=== PATIENT | female | born 1950 ===

== ENCOUNTER 2017-10-03 11:27 | Emergency (ER) | payer MEDICARE ==
[2017-10-03] MEDS ORDERED: NS(*) 0.9% 1000 ML BAG 1,000 ML IV ONE (11:31)
--- NOTE | 2017-10-03 11:33 | EKG ---
FACILITY: [facility] PATIENT NAME: GISELL SHEEHAN : [id number] MR: [id number] V: [id number] EXAM DATE: ORDERING PHYSICIAN: BRITTANIE BALLESTEROS TECHNOLOGIST: SILVANO Parikh Reason : Blood Pressure : / mmHG Vent. Rate : 145 BPM Atrial Rate : 051 BPM P-R Int : 000 ms QRS Dur : 140 ms QT Int : 352 ms P-R-T Axes : 000 046 -80 degrees QTc Int : 546 ms Sinus tachycardia with premature ventricular or aberrantly conducted complexes Left bundle branch block Abnormal ECG No previous ECGs available Confirmed by TANVIR PATEL ([id number]) on 10/03/2017 5:44:15 PM Referred By: Confirmed By:TANVIR PATEL
[2017-10-03] MEDS ORDERED: ASPIRIN 81 MG CHEW PO ONE (11:35)
--- NOTE | 2017-10-03 11:35 | ER Report ---
History and Physical Time Seen By MD: 11:23 HPI/ROS CHIEF COMPLAINT: Tachycardia HISTORY OF PRESENT ILLNESS: 67-year-old female patient presents to emergency room with complaint of tachycardia. Patient states that this is been going on for the past 3-1/2 hours. She states she's had a history of SVT in the past. She believes that's what's going on. She denies having any nausea, vomiting or diarrhea. Patient states that she has a carrot grader inspector that she sees down in [place], Dr. Garrido. However she states that she did not feel she is able to drive down there today. She denies having any chest pain. She states that this has happened in the past and typically they recommend that she wait until he clears. She states that she is feeling so unsteady that she was becoming reevaluated now. Patient states she is having some dizziness, hard time seeing. Patient has a history of a four-vessel CABG. REVIEW OF SYSTEMS: Respiratory: No cough, no dyspnea. Cardiovascular: As noted above Gastrointestinal: No vomiting, no abdominal pain. Musculoskeletal: No back pain. Allergies: Coded Allergies: amiodarone (Verified Allergy, Intermediate, 10/03/17) atorvastatin (Verified Allergy, Intermediate, 10/03/17) fluoxetine (Verified Allergy, Intermediate, 10/03/17) nitrofurantoin (Verified Allergy, Intermediate, 10/03/17) sertraline (Verified Allergy, Intermediate, 10/03/17) simvastatin (Verified Allergy, Intermediate, 10/03/17) tramadol (Verified Allergy, Intermediate, 10/03/17) Home Meds Reported Medications Ranitidine Hcl (ZANTAC) 150 Mg Tablet, 300 MG PO BID, TAB 10/03/17 Atenolol (ATENOLOL) 50 Mg Tablet, 100 TAB PO QDAY, TAB 10/03/17 Pravastatin Sodium (PRAVASTATIN SODIUM) 80 Mg Tablet, 80 MG PO QDAY 10/03/17 Buspirone Hcl (BUSPIRONE HCL) 15 Mg Tablet, 15 MG PO BID, #10 TAB 10/03/17 Amitriptyline Hcl (AMITRIPTYLINE HCL) 25 Mg Tablet, 25 MG PO QHS, #5 TAB 10/03/17 Citalopram Hydrobromide (CITALOPRAM HBR) 20 Mg Tablet, 20 MG PO QDAY, #5 TAB 10/03/17 Ondansetron Hcl (ZOFRAN) 4 Mg Tablet, 8 MG PO Q12H, TAB 10/03/17 Past Medical/Surgical History Patient has a past medical history of shoulder fracture, [place]. Patient has surgical history of four-vessel CABG. Reviewed Nurses Notes: Yes Constitutional Vital Sign - Last 24 Hours 10/03/17 10/03/17 10/03/17 10/03/17 11:27 11:27 11:30 11:38 Temp 98.0 Pulse 145 146 Resp 17 B/P (MAP) 88/55 (66) 118/94 Pulse Ox 91 90 O2 Delivery Room Air O2 Flow Rate 1.0 10/03/17 10/03/17 10/03/17 10/03/17 11:42 11:45 11:57 12:00 Pulse 152 70 B/P (MAP) 113/71 (85) 100/69 (79) Pulse Ox 90 91 10/03/17 10/03/17 10/03/17 10/03/17 12:12 12:15 12:27 12:32 Pulse 64 65 ??? B/P (MAP) 109/74 (86) Pulse Ox 93 10/03/17 10/03/17 10/03/17 10/03/17 12:45 13:00 13:02 13:15 Pulse 64 Resp 18 B/P (MAP) 112/78 (89) 92/75 (81) 111/74 (86) 10/03/17 10/03/17 10/03/17 10/03/17 13:30 13:32 13:45 14:00 Pulse ??? Resp 57 B/P (MAP) 108/60 (76) 120/73 (89) 102/67 (79) Pulse Ox 91 10/03/17 10/03/17 10/03/17 14:02 14:15 14:27 Pulse 54 Resp 30 B/P (MAP) 128/125 (126) 114/68 (83) Pulse Ox 91 Intake and Output 10/03/17 10/03/17 10/04/17 15:00 23:00 07:00 Intake Total 1000 ml Balance 1000 ml Physical Exam General Appearance: The patient is alert, has no immediate need for airway protection and no current signs of toxicity. Respiratory: Chest is non tender, lungs are clear to auscultation. Cardiac: regular rhythm, patient is tachycardic. Gastrointestinal: Abdomen is soft and non tender, no masses, bowel sounds normal. Musculoskeletal: Neck: Neck is supple and non tender. Extremities have full range of motion and are non tender. Skin: No rashes or lesions. DIFFERENTIAL DIAGNOSIS: After history and physical exam differential diagnosis was considered for chest pain including but not limited to myocardial ischemia, pericarditis pulmonary embolus, chest wall pain, pleural inflammation and pulmonary infectious causes. Medical Decision Making Data Points Result Diagram: 10/03/17 1120 10/03/17 1120 Laboratory Hematology Test 10/03/17 11:20 10/03/17 13:41 Red Blood Count 5.50 M/uL (4.17-5.56) Mean Corpuscular Volume 82.9 fL (80.0-96.0) Mean Corpuscular Hemoglobin 28.0 pg (26.0-33.0) Mean Corpuscular Hemoglobin Concent 33.7 g/dL (32.0-36.0) Red Cell Distribution Width 14.2 % (11.5-14.5) Mean Platelet Volume 8.1 fL (7.2-11.1) Neutrophils (%) (Auto) 61.5 % (39.4-72.5) Lymphocytes (%) (Auto) 30.4 % (17.6-49.6) Monocytes (%) (Auto) 6.5 % (4.1-12.4) Eosinophils (%) (Auto) 0.5 % (0.4-6.7) Basophils (%) (Auto) 1.1 % (0.3-1.4) Nucleated RBC Relative Count (auto) 0.0 /100WBC Neutrophils # (Auto) 7.7 K/uL (2.0-7.4) Lymphocytes # (Auto) 3.8 K/uL (1.3-3.6) Monocytes # (Auto) 0.8 K/uL (0.3-1.0) Eosinophils # (Auto) 0.1 K/uL (0.0-0.5) Basophils # (Auto) 0.1 K/uL (0.0-0.1) Nucleated RBC Absolute Count (auto) 0.00 K/uL Sodium Level 139 mmol/L (137-145) Potassium Level 4.0 mmol/L (3.5-5.0) Chloride Level 105 mmol/L (98-107) Carbon Dioxide Level 22 mmol/L (22-31) Blood Urea Nitrogen 12 mg/dl (7-18) Creatinine 1.10 mg/dl (0.52-1.04) Glomerular Filtration Rate Calc 49.4 Random Glucose 125 mg/dl (75-110) Calcium Level 9.8 mg/dl (8.4-10.2) Total Bilirubin 1.2 mg/dl (0.2-1.3) Aspartate Amino Transf (AST/SGOT) 40 U/L (0-35) Alanine Aminotransferase (ALT/SGPT) 44 U/L (0-56) Alkaline Phosphatase 104 U/L (0-126) Total Protein 8.1 gm/dl (6.3-8.2) Albumin 4.4 g/dl (3.5-5.0) Troponin I < 0.012 ng/ml Chemistry Test 10/03/17 11:20 10/03/17 13:41 White Blood Count 12.6 k/uL (4.5-11.0) Red Blood Count 5.50 M/uL (4.17-5.56) Hemoglobin 15.4 g/dL (12.0-16.0) Hematocrit 45.6 % (34.0-47.0) Mean Corpuscular Volume 82.9 fL (80.0-96.0) Mean Corpuscular Hemoglobin 28.0 pg (26.0-33.0) Mean Corpuscular Hemoglobin Concent 33.7 g/dL (32.0-36.0) Red Cell Distribution Width 14.2 % (11.5-14.5) Platelet Count 309 K/uL (150-450) Mean Platelet Volume 8.1 fL (7.2-11.1) Neutrophils (%) (Auto) 61.5 % (39.4-72.5) Lymphocytes (%) (Auto) 30.4 % (17.6-49.6) Monocytes (%) (Auto) 6.5 % (4.1-12.4) Eosinophils (%) (Auto) 0.5 % (0.4-6.7) Basophils (%) (Auto) 1.1 % (0.3-1.4) Nucleated RBC Relative Count (auto) 0.0 /100WBC Neutrophils # (Auto) 7.7 K/uL (2.0-7.4) Lymphocytes # (Auto) 3.8 K/uL (1.3-3.6) Monocytes # (Auto) 0.8 K/uL (0.3-1.0) Eosinophils # (Auto) 0.1 K/uL (0.0-0.5) Basophils # (Auto) 0.1 K/uL (0.0-0.1) Nucleated RBC Absolute Count (auto) 0.00 K/uL Glomerular Filtration Rate Calc 49.4 Calcium Level 9.8 mg/dl (8.4-10.2) Total Bilirubin 1.2 mg/dl (0.2-1.3) Aspartate Amino Transf (AST/SGOT) 40 U/L (0-35) Alanine Aminotransferase (ALT/SGPT) 44 U/L (0-56) Alkaline Phosphatase 104 U/L (0-126) Total Protein 8.1 gm/dl (6.3-8.2) Albumin 4.4 g/dl (3.5-5.0) Troponin I < 0.012 ng/ml EKG/Imaging EKG Interpretation 12 lead EKG: Rhythm: Wide-complex tachycardia with ventricular rate of 145 bpm [place]: normal QRS: Left bundle branch block ST segments: normal Imaging Study: Frontal and lateral views of the chest Indication: Tachycardia, shortness of breath Comparison study: January 13, 2013 Findings: PA and lateral views of the chest demonstrate no evidence of acute infiltrate. There is no evidence of pleural effusion. There is no evidence of pneumothorax. The mediastinal, cardiac, and diaphragmatic contours are unremarkable. The patient is status post CABG. The visualized bony structures are unremarkable. The patient is status post left glenohumeral joint replacement. IMPRESSION: No acute cardiopulmonary abnormality identified. Report Dictated By: Denny Lynn at 10/03/2017 12:56 PM Report E-Signed By: Denny Lynn at 10/03/2017 12:57 PM ED Course/Re-evaluation ED Course Patient was admitted to exam room, history and physical were obtained. Differential diagnoses were considered. On examination patient is tachycardic, abdomen is soft nontender. A IV was started, CBC, CMP, troponin, EKG, chest x- ray were done. Initial EKG shows a wide complex tachycardia with a possible left bundle branch, the QRS was measuring 140 ms. While we were waiting for the lab work to return the patient did convert what appeared to be to atrial fibrillation and then also like to sinus rhythm. The labs came back unremarkable , troponin was negative, patient did have an elevated creatinine of 1.1. Chest x -ray was negative. A repeat troponin and repeat EKG were done. The repeat EKG shows a normal sinus rhythm, repeat troponin was negative. I did call and speak with her carrot grader inspector, Dr. Garrido, who felt there was no use increasing her atenolol. He felt the patient should follow-up in 24-48 hours in the outpatient clinic. He felt the patient likely needed to have an ablation done. I discussed this with the patient. She verbalized understanding and agreement with plan. We will go ahead and discharge patient home at this time. Decision to Disposition Date: Oct 03, 2017 Decision to Disposition Time: 14:24 Depart Departure Latest Vital Signs Vital Signs Date Time Temp Pulse Resp B/P (MAP) Pulse Ox O2 Delivery O2 Flow Rate FiO2 10/03/17 14:27 114/68 (83) 10/03/17 14:02 54 30 91 10/03/17 11:38 98.0 Room Air 10/03/17 11:27 1.0 Impression: Primary Impression: Tachyarrhythmia Condition: Improved Disposition: HOME OR SELF-CARE Patient Instructions: Supraventricular Tachycardia (ED) Additional Instructions: Continue with current medications. Follow up with your carrot grader inspector, call this afternoon to make an appointment. Limit activity by pain. Return to the ER if condition worsens. BRITTANIE BALLESTEROS Oct 03, 2017 11:35
[2017-10-03 11:44] LABS: PLATELET COUNT, AUTOMATED 309 K/uL (150-450)
[2017-10-03] MEDS ORDERED: AMIT-106 PO (12:30)
[2017-10-03] MEDS ORDERED: RANI-324 PO (12:30)
[2017-10-03] MEDS ORDERED: ONDA4TAB97 PO (12:30)
[2017-10-03] MEDS ORDERED: ATEN-1 PO (12:30)
[2017-10-03] MEDS ORDERED: CITA-139 PO (12:30)
[2017-10-03] MEDS ORDERED: BUSP15TA69 PO (12:30)
[2017-10-03] MEDS ORDERED: PRAV80TA29 PO (12:30)
--- NOTE | 2017-10-03 13:00 | RADIOLOGY IMAGING REPORT ---
FACILITY: [facility] PATIENT NAME: Alana Gross : 1950 MR: [id number] V: [id number] EXAM DATE: ORDERING PHYSICIAN: BRITTANIE BALLESTEROS TECHNOLOGIST: Location: [facility] Patient: Alana Gross : 1950 Visit/Account:[id number] Date of Sevice: 10/03/2017 Study: Frontal and lateral views of the chest Indication: Tachycardia, shortness of breath Comparison study: January 13, 2013 Findings: PA and lateral views of the chest demonstrate no evidence of acute infiltrate. There is no evidence of pleural effusion. There is no evidence of pneumothorax. The mediastinal, cardiac, and diaphragmatic contours are unremarkable. The patient is status post CAB G. The visualized bony structures are unremarkable. The patient is status post left glenohumeral joint r eplacement. IMPRESSION: No acute cardiopulmonary abnormality identified. Report Dictated By: Denny Lynn at 10/03/2017 12:56 PM Report E-Signed By: Denny Lynn at 10/03/2017 12:57 PM WSN:[id number]
--- NOTE | 2017-10-03 13:22 | EKG ---
FACILITY: [facility] PATIENT NAME: GISELL SHEEHAN : [id number] MR: [id number] V: [id number] EXAM DATE: ORDERING PHYSICIAN: BRITTANIE BALLESTEROS TECHNOLOGIST: SILVANO Parikh Reason : REPEAT Blood Pressure : / mmHG Vent. Rate : 061 BPM Atrial Rate : 061 BPM P-R Int : 184 ms QRS Dur : 106 ms QT Int : 478 ms P-R-T Axes : 012 024 060 degrees QTc Int : 481 ms Normal sinus rhythm Anterior infarct , age undetermined Abnormal ECG When compared with ECG of 03-OCT-2017 11:22, Sinus rhythm has replaced Wide QRS tachycardia Vent. rate has decreased BY 84 BPM Confirmed by TANVIR PATEL ([id number]) on 10/03/2017 5:44:34 PM Referred By: BRITTANIE Confirmed By:TANVIR PATEL
[2017-10-03 14:27] VITALS: BP 114/68
== END 2017-10-03 14:44 | disposition home or self-care (01) ==
LOC: ER 11:37
DX: R00.0 Tachycardia, unspecified (principal)
CPT/HCPCS: 36415; 71046; 84484; 85025; 93005; 96360; 99284; A9270; J7030; 82040; 82247; 82310; 82374; 82435; 82565; 82947; 84075; 84132; 84155; 84295; 84450; 84460; 84520

== ENCOUNTER 2017-10-03 16:25 | Observation (INO) | payer MEDICARE ==
[~2017-10-03] VITALS: Ht 177.8 cm; Wt 104.3 kg
[~2017-10-03 16:25] MED LIST: AMIT-106 PO; ATEN-1 PO; BUSP15TA69 PO; CITA-139 PO; ONDA4TAB97 PO; PRAV80TA29 PO; RANI-324 PO
--- NOTE | 2017-10-03 16:46 | EKG ---
FACILITY: [facility] PATIENT NAME: GISELL SHEEHAN : [id number] MR: [id number] V: [id number] EXAM DATE: ORDERING PHYSICIAN: BRITTANIE BALLESTEROS TECHNOLOGIST: SILVANO Parikh Reason : BACK TO ER Blood Pressure : / mmHG Vent. Rate : 077 BPM Atrial Rate : 077 BPM P-R Int : 174 ms QRS Dur : 106 ms QT Int : 400 ms P-R-T Axes : 055 029 175 degrees QTc Int : 452 ms Sinus rhythm with marked sinus arrhythmia Cannot rule out Anterior infarct (cited on or before 03-OCT-2017) T wave abnormality, consider inferior ischemia Abnormal ECG When compared with ECG of 03-OCT-2017 13:07, T wave inversion now evident in Inferior leads Confirmed by TANVIR PATEL ([id number]) on 10/03/2017 5:45:06 PM Referred By: XAVIER Confirmed By:TANVIR PATEL
[2017-10-03 16:49] LABS: PLATELET COUNT, AUTOMATED 244 K/uL (150-450)
--- NOTE | 2017-10-03 17:14 | RADIOLOGY IMAGING REPORT ---
FACILITY: [facility] [place] PATIENT NAME: Alana Gross : 1950 MR: [id number] V: [id number] EXAM DATE: ORDERING PHYSICIAN: BRITTANIE BALLESTEROS TECHNOLOGIST: Location: [facility] [place] Patient: Alana Gross : 1950 Visit/Account:[id number] Date of Sevice: 10/03/2017 2 VIEWS CHEST INDICATION: Chest pain and dizziness. COMPARISON: 10/03/2017. At 12:37 PM. FINDINGS: Cardiomediastinal silhouette and pulmonary vessels within normal limits. Sternotomy changes and CABG changes. There is no focal infiltrate or lobar consolidation. There is no pneumothorax or pleural effusion. No nodule. Upper abdomen is unremarkable. No acute bony abnormality. Left shoulder arthroplasty without sequelae . IMPRESSION: 1. No acute cardiopulmonary process. Report Dictated By: Ruslan Smith at 10/03/2017 5:08 PM Report E-Signed By: Ruslan Smith at 10/03/2017 5:10 PM WSN:[id number]
--- NOTE | 2017-10-03 17:38 | ER Report ---
History and Physical Time Seen By MD: 16:39 Hx. of Stated Complaint: JESSICA WAS SEEN TODAY IN THE ER; PATIENT RETURNED TO ER; PATIENT STATES THAT WHEN SHE WENT HOME SHE STARTED TO FEEL HER HEART RACE AND IT WAS THE WORSE IT HAS EVER BEEN; SHE RETURNED TO THE ER; SHE STATES THAT " THE DOCTORS OFFICE TOLD HER TO GET DOWN TO THE CLINIC NOW AND THAT THEY DIDNT WANT HER TO DRIVE". HPI/ROS CHIEF COMPLAINT: Tachyarrhythmia HISTORY OF PRESENT ILLNESS: 67-year-old female patient presents to emergency room with complaint of tachyarrhythmia. Patient states was seen earlier today with the same complaint. EKG at that time showed a ventricular rate of 145 bpm. Patient converted spontaneously back to sinus rhythm and was discharged home after reviewing the case with her cartography professor. Patient states that associated at home and sat down she felt that her heart was racing again. She states that she called and spoke with the nurse of her cartography professor who stated that she needed to "get her butt down there". Patient states she asked if she could drive herself down there to which she received an unequivocal no. She was most return to the emergency room where she was going to get a "transport" down. Patient states she was having significant amounts of chest pain at that time, however just prior to arrival in the emergency room her symptoms stopped. She states she would like to be evaluated again. Patient states she is unable to drive down and her friend was unable to go down due to back pain. REVIEW OF SYSTEMS: Respiratory: No cough, no dyspnea. Cardiovascular: As noted above Gastrointestinal: No vomiting, no abdominal pain. Musculoskeletal: No back pain. Allergies: Coded Allergies: amiodarone (Verified Allergy, Intermediate, 10/03/17) atorvastatin (Verified Allergy, Intermediate, 10/03/17) fluoxetine (Verified Allergy, Intermediate, 10/03/17) nitrofurantoin (Verified Allergy, Intermediate, 10/03/17) sertraline (Verified Allergy, Intermediate, 10/03/17) simvastatin (Verified Allergy, Intermediate, 10/03/17) tramadol (Verified Allergy, Intermediate, 10/03/17) Home Meds Reported Medications Ranitidine Hcl (ZANTAC) 150 Mg Tablet, 300 MG PO BID, TAB 10/03/17 Atenolol (ATENOLOL) 50 Mg Tablet, 100 TAB PO QDAY, TAB 10/03/17 Pravastatin Sodium (PRAVASTATIN SODIUM) 80 Mg Tablet, 80 MG PO QDAY 10/03/17 Buspirone Hcl (BUSPIRONE HCL) 15 Mg Tablet, 15 MG PO BID, #10 TAB 10/03/17 Amitriptyline Hcl (AMITRIPTYLINE HCL) 25 Mg Tablet, 25 MG PO QHS, #5 TAB 10/03/17 Citalopram Hydrobromide (CITALOPRAM HBR) 20 Mg Tablet, 20 MG PO QDAY, #5 TAB 10/03/17 Ondansetron Hcl (ZOFRAN) 4 Mg Tablet, 8 MG PO Q12H, TAB 10/03/17 Past Medical/Surgical History Patient has a past medical history of CAD, October regurgitation, [place], A. fib, SVT, hypertension, pneumonia, GERD, hiatal hernia, frequent UTIs, arthritis, osteoporosis, left shoulder fracture, missing teeth, major depressive disorder, anxiety, uterine cancer, breast cancer. Patient has surgical history of hysterectomy, ENT surgery, left mastectomy. Reviewed Nurses Notes: Yes Hx Substance Use Disorder: No Hx Alcohol Use: No Constitutional Vital Sign - Last 24 Hours 10/03/17 10/03/17 10/03/17 10/03/17 16:30 16:31 16:55 17:25 Temp 98.8 Pulse 74 78 72 Resp 19 42 15 B/P (MAP) 124/86 124/86 (99) Pulse Ox 93 91 90 O2 Delivery Room Air Physical Exam General Appearance: The patient is alert, has no immediate need for airway protection and no current signs of toxicity. ENT: Tympanic membranes are pearly-joel, auditory canals are patent. Mucous membranes are moist. Respiratory: Chest is non tender, lungs are clear to auscultation. Cardiac: regular rate and rhythm Gastrointestinal: Abdomen is soft and non tender, no masses, bowel sounds normal. Musculoskeletal: Neck: Neck is supple and non tender. Extremities have full range of motion and are non tender. Skin: No rashes or lesions. DIFFERENTIAL DIAGNOSIS: After history and physical exam differential diagnosis was considered for tachyarrhythmia, SVT, atrial fibrillation. Medical Decision Making Data Points Result Diagram: 10/03/17 1436 10/03/17 1436 Laboratory Hematology Test 10/03/17 14:36 Red Blood Count 5.15 M/uL (4.17-5.56) Mean Corpuscular Volume 82.8 fL (80.0-96.0) Mean Corpuscular Hemoglobin 27.7 pg (26.0-33.0) Mean Corpuscular Hemoglobin Concent 33.5 g/dL (32.0-36.0) Red Cell Distribution Width 14.2 % (11.5-14.5) Mean Platelet Volume 8.1 fL (7.2-11.1) Neutrophils (%) (Auto) 61.8 % (39.4-72.5) Lymphocytes (%) (Auto) 32.7 % (17.6-49.6) Monocytes (%) (Auto) 3.5 % (4.1-12.4) Eosinophils (%) (Auto) 0.6 % (0.4-6.7) Basophils (%) (Auto) 1.4 % (0.3-1.4) Nucleated RBC Relative Count (auto) 0.1 /100WBC Neutrophils # (Auto) 6.9 K/uL (2.0-7.4) Lymphocytes # (Auto) 3.7 K/uL (1.3-3.6) Monocytes # (Auto) 0.4 K/uL (0.3-1.0) Eosinophils # (Auto) 0.1 K/uL (0.0-0.5) Basophils # (Auto) 0.2 K/uL (0.0-0.1) Nucleated RBC Absolute Count (auto) 0.01 K/uL Sodium Level 140 mmol/L (137-145) Potassium Level 4.1 mmol/L (3.5-5.0) Chloride Level 108 mmol/L (98-107) Carbon Dioxide Level 20 mmol/L (22-31) Blood Urea Nitrogen 13 mg/dl (7-18) Creatinine 1.00 mg/dl (0.52-1.04) Glomerular Filtration Rate Calc 55.1 Random Glucose 115 mg/dl (75-110) Calcium Level 9.5 mg/dl (8.4-10.2) Total Bilirubin 1.0 mg/dl (0.2-1.3) Aspartate Amino Transf (AST/SGOT) 42 U/L (0-35) Alanine Aminotransferase (ALT/SGPT) 48 U/L (0-56) Alkaline Phosphatase 93 U/L (0-126) Troponin I < 0.012 ng/ml Total Protein 7.5 gm/dl (6.3-8.2) Albumin 3.9 g/dl (3.5-5.0) Chemistry Test 10/03/17 14:36 White Blood Count 11.2 k/uL (4.5-11.0) Red Blood Count 5.15 M/uL (4.17-5.56) Hemoglobin 14.3 g/dL (12.0-16.0) Hematocrit 42.7 % (34.0-47.0) Mean Corpuscular Volume 82.8 fL (80.0-96.0) Mean Corpuscular Hemoglobin 27.7 pg (26.0-33.0) Mean Corpuscular Hemoglobin Concent 33.5 g/dL (32.0-36.0) Red Cell Distribution Width 14.2 % (11.5-14.5) Platelet Count 244 K/uL (150-450) Mean Platelet Volume 8.1 fL (7.2-11.1) Neutrophils (%) (Auto) 61.8 % (39.4-72.5) Lymphocytes (%) (Auto) 32.7 % (17.6-49.6) Monocytes (%) (Auto) 3.5 % (4.1-12.4) Eosinophils (%) (Auto) 0.6 % (0.4-6.7) Basophils (%) (Auto) 1.4 % (0.3-1.4) Nucleated RBC Relative Count (auto) 0.1 /100WBC Neutrophils # (Auto) 6.9 K/uL (2.0-7.4) Lymphocytes # (Auto) 3.7 K/uL (1.3-3.6) Monocytes # (Auto) 0.4 K/uL (0.3-1.0) Eosinophils # (Auto) 0.1 K/uL (0.0-0.5) Basophils # (Auto) 0.2 K/uL (0.0-0.1) Nucleated RBC Absolute Count (auto) 0.01 K/uL Glomerular Filtration Rate Calc 55.1 Calcium Level 9.5 mg/dl (8.4-10.2) Total Bilirubin 1.0 mg/dl (0.2-1.3) Aspartate Amino Transf (AST/SGOT) 42 U/L (0-35) Alanine Aminotransferase (ALT/SGPT) 48 U/L (0-56) Alkaline Phosphatase 93 U/L (0-126) Troponin I < 0.012 ng/ml Total Protein 7.5 gm/dl (6.3-8.2) Albumin 3.9 g/dl (3.5-5.0) EKG/Imaging EKG Interpretation 12 lead EKG: Rhythm: Sinus rhythm with sinus arrhythmia, ventricular rate of 77 bpm [place]: normal QRS: normal ST segments: T-wave abnormality. Imaging 2 VIEWS CHEST INDICATION: Chest pain and dizziness. COMPARISON: 10/03/2017. At 12:37 PM. FINDINGS: Cardiomediastinal silhouette and pulmonary vessels within normal limits. Sternotomy changes and CABG changes. There is no focal infiltrate or lobar consolidation. There is no pneumothorax or pleural effusion. No nodule. Upper abdomen is unremarkable. No acute bony abnormality. Left shoulder arthroplasty without sequelae. IMPRESSION: 1. No acute cardiopulmonary process. Report Dictated By: Ruslan Smith at 10/03/2017 5:08 PM Report E-Signed By: Ruslan Smith at 10/03/2017 5:10 PM ED Course/Re-evaluation ED Course Patient was admitted to the exam room, history and physical were obtained. Differential diagnoses were considered. On examination lungs are clear, heart is regular. A CBC, CMP, troponin, EKG, chest x-ray were done. The lab results were unremarkable. EKG showed a sinus rhythm with a sinus rhythm and T-wave abnormality. Troponin was negative. I discussed the case with Dr. Garrido, cartography professor. His recommendation was to admit to obs overnight and monitor. He does not feel that she required an emergent transfer. I discussed the case with Dr. Hendricks, hospitalist, who agreed to accept the patient for admission. I discussed this with patient who verbalized understanding and agreement. Patient states she is pain-free at this time. Decision to Disposition Date: Oct 03, 2017 Decision to Disposition Time: 17:30 Depart Departure Latest Vital Signs Vital Signs Date Time Temp Pulse Resp B/P (MAP) Pulse Ox O2 Delivery O2 Flow Rate FiO2 10/03/17 17:25 72 15 90 10/03/17 16:31 124/86 (99) 10/03/17 16:30 98.8 Room Air Impression: Primary Impression: Tachyarrhythmia Condition: Improved Disposition: Admitted from ER BRITTANIE BALLESTEROS Oct 03, 2017 17:38
[2017-10-03 18:27] VITALS: BP 114/64
--- NOTE | 2017-10-03 19:22 | History & Physical ---
History of Present Illness Chief Complaint Heart racing History of Present Illness This patient presented to the emergency room twice today complaining of her heart racing in her chest. She does have a prior history of supraventricular tachycardia and has required treatment with medications in the past. She reports to episodes of feeling her heart racing today, which both abated without treatment. History Problems: (1) SVT (supraventricular tachycardia) (2) Hx of CABG (3) Afib (4) Essential hypertension (5) Breast cancer (6) History of hysterectomy (7) Depression Home Meds Reported Medications Ranitidine Hcl (ZANTAC) 150 Mg Tablet, 300 MG PO BID, TAB 10/03/17 Atenolol (ATENOLOL) 50 Mg Tablet, 100 TAB PO QDAY, TAB 10/03/17 Pravastatin Sodium (PRAVASTATIN SODIUM) 80 Mg Tablet, 80 MG PO QDAY 10/03/17 Buspirone Hcl (BUSPIRONE HCL) 15 Mg Tablet, 15 MG PO BID, #10 TAB 10/03/17 Amitriptyline Hcl (AMITRIPTYLINE HCL) 25 Mg Tablet, 25 MG PO QHS, #5 TAB 10/03/17 Citalopram Hydrobromide (CITALOPRAM HBR) 20 Mg Tablet, 20 MG PO QDAY, #5 TAB 10/03/17 Ondansetron Hcl (ZOFRAN) 4 Mg Tablet, 8 MG PO Q12H, TAB 10/03/17 Allergies: Coded Allergies: amiodarone (Verified Allergy, Intermediate, 10/03/17) atorvastatin (Verified Allergy, Intermediate, 10/03/17) fluoxetine (Verified Allergy, Intermediate, 10/03/17) nitrofurantoin (Verified Allergy, Intermediate, 10/03/17) sertraline (Verified Allergy, Intermediate, 10/03/17) simvastatin (Verified Allergy, Intermediate, 10/03/17) tramadol (Verified Allergy, Intermediate, 10/03/17) Hx Smoking: No Hx Alcohol Use: No Hx Substance Use Disorder: No Review of Systems All Systems Reviewed/Normal: Yes, Except as Noted Cardiovascular: Palpitations Exam Vital Signs Vital Signs Date Time Temp Pulse Resp B/P (MAP) Pulse Ox O2 Delivery O2 Flow Rate FiO2 10/03/17 18:35 92 Room Air 10/03/17 18:27 97.8 65 16 114/64 (81) Neuro: No Gross deficits Eyes: PERRLA Cardiovascular: Regular Rate and Rhythm Respiratory: Clear to Auscultation GI: Abd Soft and Non-Tender Extremities: No Edema Integumentary: No Cyanosis Medical Decision Making Data Points Result Diagram: 10/03/17 1436 10/03/17 1436 Item Value Date Time Troponin I < 0.012 ng/ml 10/03/17 1436 Assessment and Plan Problems: (1) Palpitations Assessment & Plan: She present twice to the emergency room with complaints of her heart racing. Her EKG from the first visit showed a sinus tachycardia with a wide complex QRS, but the second was simply sinus rhythm. These were reviewed with her forestry biology specialist from the emergency department and it is reported that these findings were consistent with what she has had in the past. She has had three negative troponins today. Her forestry biology specialist recommended overnight observation on telemetry. A Holter monitor may be appropriate if she has no findings overnight. (2) CAD (coronary artery disease) Assessment & Plan: She does have history of CABG. She is on chronic treatment with atenolol and pravastatin. (3) Depression Assessment & Plan: She is on chronic treatment with Buspirone, citalopram, and amitriptyline. Venous Thromboembolism Antithrombotics Is Pt On Any Antithrombotics?: No Exam Sepsis Risk: No Definite Risk TANVIR PATEL DO Oct 03, 2017 19:22
[2017-10-03 21:00] VITALS: BP 120/74
[2017-10-03] MEDS ORDERED: AMITRIPTYLINE HCL 25 MG TAB PO SCH (21:00)
[2017-10-03] MEDS ORDERED: PRAVASTATIN SOD 20 MG TAB PO SCH (21:00)
[2017-10-03] MEDS: busPIRone HCL 5 MG TAB PO SCH (21:00)
[2017-10-03] MEDS ORDERED: CITALOPRAM HYDROBROM 20 MG TAB PO SCH (21:30)
[2017-10-03 23:10] VITALS: BP 101/68
[2017-10-04 04:01] VITALS: BP 138/71
[2017-10-04 07:35] VITALS: BP 121/80
[2017-10-04] MEDS: busPIRone HCL 5 MG TAB PO SCH (08:49)
[2017-10-04 08:50] VITALS: Ht 177.8 cm; Wt 104.3 kg
[2017-10-04] MEDS ORDERED: CITALOPRAM HYDROBROM 20 MG TAB PO SCH (09:00)
[2017-10-04] MEDS ORDERED: ATENOLOL 50 MG TAB PO SCH (09:00)
[2017-10-04 11:20] VITALS: BP 111/72
--- NOTE | 2017-10-04 11:20 | Hospitalist Depart ---
Discharge Summary Reason for Hosp/Final Diag: (1) Palpitations Status: Acute Hospital Course & Plan: She present twice to the emergency room with complaints of her heart racing. Her EKG from the first visit showed a SVT with a LBBB, but the second was simply sinus rhythm. These were reviewed with her solid waste landfill technician from the emergency department and it is reported that these findings were consistent with what she has had in the past. She has had three negative troponins. There were no arrhythmias overnight. However, she feels like her heart might be fluttering. She is in a normal sinus rhythm at rate in the 60's. She will be set up with a Holter monitor with discharge and then will follow up with her Vest Busheler. (2) Leukocytosis Status: Acute Hospital Course & Plan: Etiology is unclear and she has a normal differential. Will have her repeat the test in a week or two with the results to her PCP. (3) Elevated serum creatinine Status: Acute Hospital Course & Plan: Mildly elevated. It is unknown what is her baseline creatinine. Repeat in a week or two with the results going to her PCP. (4) Depression Hospital Course & Plan: She is on chronic treatment with citalopram, and amitriptyline. (5) CAD (coronary artery disease) Hospital Course & Plan: She does have history of CABG. She is on chronic treatment with atenolol and pravastatin. Departure Weight (Pounds): 230 Result Diagram: 10/03/17 1436 10/03/17 1436 Item Value Date Time White Blood Count 12.6 k/uL H 10/03/17 1120 White Blood Count 11.2 k/uL H 10/03/17 1436 Hemoglobin 15.4 g/dL 10/03/17 1120 Hemoglobin 14.3 g/dL 10/03/17 1436 Platelet Count 309 K/uL 10/03/17 1120 Platelet Count 244 K/uL 10/03/17 1436 Creatinine 1.10 mg/dl H 10/03/17 1120 Creatinine 1.00 mg/dl 10/03/17 1436 Troponin I < 0.012 ng/ml 10/03/17 1120 Troponin I < 0.012 ng/ml 10/03/17 1341 Troponin I < 0.012 ng/ml 10/03/17 1436 Imaging CXR - 1. No acute cardiopulmonary process. EKG Vent. Rate : 077 BPM Atrial Rate : 077 BPM P-R Int : 174 ms QRS Dur : 106 ms QT Int : 400 ms P-R-T Axes : 055 029 175 degrees QTc Int : 452 ms Sinus rhythm with marked sinus arrhythmia Cannot rule out Anterior infarct (cited on or before 03-OCT-2017) T wave abnormality, consider inferior ischemia Abnormal ECG When compared with ECG of 03-OCT-2017 13:07, T wave inversion now evident in Inferior leads Confirmed by TANVIR PATEL ([id number]) on 10/03/2017 5:45:06 PM Condition: Improved Discharge: Home Discharge Instructions Home Meds Reported Medications Ranitidine Hcl (ZANTAC) 150 Mg Tablet, 300 MG PO BID, TAB 10/03/17 Atenolol (ATENOLOL) 50 Mg Tablet, 100 TAB PO QDAY, TAB 10/03/17 Pravastatin Sodium (PRAVASTATIN SODIUM) 80 Mg Tablet, 80 MG PO QDAY 10/03/17 Citalopram Hydrobromide (CITALOPRAM HBR) 20 Mg Tablet, 20 MG PO QDAY, #5 TAB 10/03/17 Ondansetron Hcl (ZOFRAN) 4 Mg Tablet, 8 MG PO Q12H Y for nausea, TAB 10/03/17 Special Instructions: CBC/BMP in a week or two to follow a mildly elevated WBC and creatinine. Go to the ER for worsening chest pain. Follow up with your Vest Busheler at the next available time. Copies to: Olvin Garrido MD Venous Thromboembolism Antithrombotics Is Pt On Any Antithrombotics?: No JOO CORONA MD Oct 04, 2017 11:20
[2017-10-06] MEDS ORDERED: INFLUENZA VIRUS VAC 0.5 ML SYR IM ONLY ONE (09:00)
--- NOTE | 2017-10-07 14:05 | Transitional Care Management ---
TCM Discharge Criteria Transitional Care Comment: 10/07 Alana stated she is feeling better- no further rapid heart rate. Has been on a halter monitor for a cuple of days and will return it this afternoon. She has not seen PCP or clinical quality assurance specialist at this time but will contact them this afternoon. Denies CP or SOB. LUIS MANUEL HIGUERA Oct 07, 2017 14:05
== END 2017-10-04 11:20 | disposition home or self-care (01) ==
LOC: ER 16:36 → MED 17:45
PROVIDERS: ADMIT Family Medicine; ATTEND Family Medicine
DX: R00.0 Tachycardia, unspecified (principal); F32.9 Major depressive disorder, single episode, unspecified; R00.2 Palpitations; I25.810 Atherosclerosis of coronary artery bypass graft(s) without angina pectoris; R79.89 Other specified abnormal findings of blood chemistry
CPT/HCPCS: 71046; 84484; 85025; 93005; 99285; A9270; G0378; 82040; 82247; 82310; 82374; 82435; 82565; 82947; 84075; 84132; 84155; 84295; 84450; 84460; 84520

== ENCOUNTER → 2017-10-04 | Outpatient (CLI) | payer MEDICARE ==
[2017-10-04 08:50] VITALS: BMI 33.0
--- NOTE | 2017-10-07 13:27 | Transitional Care Management ---
TCM Discharge Criteria Transitional Care Comment: 10/07 unable to contact LUIS MANUEL HIGUERA Oct 07, 2017 13:27
--- NOTE | 2017-10-08 04:08 | RT HOLTER TEST ---
FACILITY: [facility] - [place] PATIENT NAME: GISELL LOMELI : [id number] MR: [id number] V: [id number] EXAM DATE: ORDERING PHYSICIAN: JOO CORONA TECHNOLOGIST: JUAQUIN Hinson-up date: 2017-10-04 13:02:00 Duration: 47:59:00 Test Indications: Medications: [id number] QRS complexes 311 Ventricular ectopics which represent <1 % of total QRS comp. 29 Supraventricular ectopics which represent <1 % of total QRS comp. * Paced QRS complexes which represent % of total QRS comp. VENTRICULAR ECTOPY 288 Isolated 0 Bigeminal Cycles 3 Couplets 4 Runs 17 Beats in Runs 6 Beats LONGEST at 139 BPM at 11:33:45 2017-10-05 6 Beats FASTEST at 139 BPM at 11:33:45 2017-10-05 SUPRAVENTRICULAR ECTOPY 29 Isolated 0 Couplets 0 Runs 0 Beats in Runs * Beats LONGEST at * BPM at :: -- * Beats FASTEST at * BPM at :: -- HEART RATES 48 MIN at 08:55:07 2017-10-06 65 AVG 106 MAX at 11:12:15 2017-10-06 LONGEST RR 1.576 secs at 10:05:14 2017-10-06 S-T LEVELS Channel 1 -12.800 mm MIN at 13:02:00 2017-10-04 -12.800 mm MAX at 13:02:00 2017-10-04 Channel 2 -12.800 mm MIN at 13:02:00 2017-10-04 -12.800 mm MAX at 13:02:00 2017-10-04 Channel 3 -12.800 mm MIN at 13:02:00 2017-10-04 -12.800 mm MAX at 13:02:00 2017-10-04 Premature ventricular complexes Several runs of PVC Confirmed by TANVIR PATEL ([id number]) on 10/08/2017 4:07:39 AM Referred By: Overread By: TANVIR PATEL
== END ==
LOC: RESP 12:44
PROVIDERS: ATTEND Internal Medicine
DX: I47.1 Supraventricular tachycardia (principal)
CPT/HCPCS: 93225; 93226

== ENCOUNTER 2017-11-08 16:26 | Emergency (ER) | payer MEDICARE ==
[2017-10-04 08:50] VITALS: Wt 104.3 kg
--- NOTE | 2017-11-08 16:35 | ER Report ---
History and Physical Time Seen By MD: 16:35 HPI/ROS CHIEF COMPLAINT: I had a stroke in my left eye HISTORY OF PRESENT ILLNESS: 67-year-old female patient presents to emergency room with complaint of having a stroke in her left eye. Patient states that last night she was feeling very dizzy. She states that she went to lay down. While she was lying down the vision in her left eye went dark. She states that when dark for approximately 90 minutes. After which time resolved. She states she still has some blurred vision in the left eye. She denies any nausea, vomiting or diarrhea. Patient states that she did go see her client resource specialist today, who ran her through several tests, but told her that she had a stroke in her left eye and wanted her to follow-up with her public health dietitian which is caring for her macular degeneration. She states she gave him a call and was directed to the hospital for further workup. Patient denies having any weakness. She states she has no numbness tingling. REVIEW OF SYSTEMS: Constitutional: No fever, no chills. Eyes: No discharge. ENT: No sore throat. Cardiovascular: No chest pain, no palpitations. Respiratory: No cough, no shortness of breath. Gastrointestinal: No abdominal pain, no vomiting. Genitourinary: No hematuria. Musculoskeletal: No back pain. Skin: No rashes. Neurological: No headache. Allergies: Coded Allergies: amiodarone (Verified Allergy, Intermediate, 11/08/17) atorvastatin (Verified Allergy, Intermediate, 11/08/17) fluoxetine (Verified Allergy, Intermediate, 11/08/17) nitrofurantoin (Verified Allergy, Intermediate, 11/08/17) sertraline (Verified Allergy, Intermediate, 11/08/17) simvastatin (Verified Allergy, Intermediate, 11/08/17) tramadol (Verified Allergy, Intermediate, 11/08/17) Home Meds Reported Medications Atenolol (ATENOLOL) 50 Mg Tablet, 100 TAB PO QDAY, TAB 10/03/17 Citalopram Hydrobromide (CITALOPRAM HBR) 20 Mg Tablet, 20 MG PO QDAY, #5 TAB 10/03/17 Discontinued Reported Medications Ranitidine Hcl (ZANTAC) 150 Mg Tablet, 300 MG PO BID, TAB 10/03/17 Pravastatin Sodium (PRAVASTATIN SODIUM) 80 Mg Tablet, 80 MG PO QDAY 10/03/17 Ondansetron Hcl (ZOFRAN) 4 Mg Tablet, 8 MG PO Q12H Y for nausea, TAB 10/03/17 Past Medical/Surgical History Patient has a past medical history of CAD, mitral valve regurgitation, MA, A. fib, SVT, hypertension, pneumonia, GERD, UTI, also arthritis, osteoporosis, left shoulder fracture, depression, anxiety, uterine cancer, breast cancer. Patient has surgical history of hysterectomy, eye surgery, left mastectomy. Reviewed Nurses Notes: Yes Hx Smoking: No Hx Substance Use Disorder: No Hx Alcohol Use: No Constitutional Vital Sign - Last 24 Hours 11/08/17 11/08/17 11/08/17 11/08/17 16:30 16:31 16:36 16:56 Temp 98.2 Pulse 71 69 66 Resp 16 B/P (MAP) 125/94 125/94 (104) Pulse Ox 94 94 91 O2 Delivery Room Air 11/08/17 11/08/17 11/08/17 11/08/17 17:00 17:06 17:11 17:16 Pulse 68 65 64 B/P (MAP) 124/93 (103) Pulse Ox 91 93 11/08/17 11/08/17 11/08/17 11/08/17 17:21 17:26 17:30 17:31 Pulse 65 66 65 B/P (MAP) 136/98 (111) Pulse Ox 92 92 92 11/08/17 11/08/17 17:36 19:16 Pulse 68 85 Resp 16 B/P (MAP) 138/85 (102) Pulse Ox 90 95 O2 Delivery Room Air Physical Exam General Appearance: The patient is alert, has no immediate need for airway protection and no signs of toxicity. Eyes: Pupils equal and round no pallor or injection. ENT, Mouth: Mucous membranes are moist. Respiratory: There are no retractions, lungs are clear to auscultation. Cardiovascular: Regular rate and rhythm. Gastrointestinal: Abdomen is soft and non tender, no masses, bowel sounds normal. Neurological: Patient is alert and oriented 4, cranial nerves II through XII grossly intact, pronator drift was negative. Skin: Warm and dry, no rashes. Musculoskeletal: Neck is supple non tender. Extremities are nontender, nonswollen and have full range of motion. DIFFERENTIAL DIAGNOSIS: After history and physical exam differential diagnosis was considered for stroke, TIA, migraine Medical Decision Making Data Points Result Diagram: 11/08/17 1635 11/08/17 1635 Laboratory Hematology Test 11/08/17 16:35 Red Blood Count 5.01 M/uL (4.17-5.56) Mean Corpuscular Volume 82.2 fL (80.0-96.0) Mean Corpuscular Hemoglobin 28.8 pg (26.0-33.0) Mean Corpuscular Hemoglobin Concent 35.0 g/dL (32.0-36.0) Red Cell Distribution Width 14.1 % (11.5-14.5) Mean Platelet Volume 8.2 fL (7.2-11.1) Neutrophils (%) (Auto) 61.3 % (39.4-72.5) Lymphocytes (%) (Auto) 31.2 % (17.6-49.6) Monocytes (%) (Auto) 5.8 % (4.1-12.4) Eosinophils (%) (Auto) 0.8 % (0.4-6.7) Basophils (%) (Auto) 0.9 % (0.3-1.4) Nucleated RBC Relative Count (auto) 0.0 /100WBC Neutrophils # (Auto) 6.6 K/uL (2.0-7.4) Lymphocytes # (Auto) 3.3 K/uL (1.3-3.6) Monocytes # (Auto) 0.6 K/uL (0.3-1.0) Eosinophils # (Auto) 0.1 K/uL (0.0-0.5) Basophils # (Auto) 0.1 K/uL (0.0-0.1) Nucleated RBC Absolute Count (auto) 0.00 K/uL Prothrombin Time 12.9 seconds (12.0-14.4) Prothromb Time International Ratio 0.97 Activated Partial Thromboplast Time 32 seconds (23-35) Sodium Level 140 mmol/L (137-145) Potassium Level 3.8 mmol/L (3.5-5.0) Chloride Level 105 mmol/L (98-107) Carbon Dioxide Level 22 mmol/L (22-31) Blood Urea Nitrogen 11 mg/dl (7-18) Creatinine 0.90 mg/dl (0.52-1.04) Glomerular Filtration Rate Calc > 60.0 Random Glucose 114 mg/dl (75-110) Calcium Level 9.3 mg/dl (8.4-10.2) Total Bilirubin 0.8 mg/dl (0.2-1.3) Aspartate Amino Transf (AST/SGOT) 34 U/L (0-35) Alanine Aminotransferase (ALT/SGPT) 32 U/L (0-56) Alkaline Phosphatase 100 U/L (0-126) Total Protein 7.3 gm/dl (6.3-8.2) Albumin 3.8 g/dl (3.5-5.0) Triglycerides Level 235 mg/dl (0-250) Cholesterol Level 197 mg/dl (75-200) LDL Cholesterol 117 mg/dl VLDL Cholesterol 47 mg/dl HDL Cholesterol 33 mg/dl Percent HDL Cholesterol 16.0 % Cholesterol Ratio (LDL/HDL) 3.54 Cholesterol/HDL Ratio 6.0 Chemistry Test 11/08/17 16:35 White Blood Count 10.7 k/uL (4.5-11.0) Red Blood Count 5.01 M/uL (4.17-5.56) Hemoglobin 14.4 g/dL (12.0-16.0) Hematocrit 41.1 % (34.0-47.0) Mean Corpuscular Volume 82.2 fL (80.0-96.0) Mean Corpuscular Hemoglobin 28.8 pg (26.0-33.0) Mean Corpuscular Hemoglobin Concent 35.0 g/dL (32.0-36.0) Red Cell Distribution Width 14.1 % (11.5-14.5) Platelet Count 217 K/uL (150-450) Mean Platelet Volume 8.2 fL (7.2-11.1) Neutrophils (%) (Auto) 61.3 % (39.4-72.5) Lymphocytes (%) (Auto) 31.2 % (17.6-49.6) Monocytes (%) (Auto) 5.8 % (4.1-12.4) Eosinophils (%) (Auto) 0.8 % (0.4-6.7) Basophils (%) (Auto) 0.9 % (0.3-1.4) Nucleated RBC Relative Count (auto) 0.0 /100WBC Neutrophils # (Auto) 6.6 K/uL (2.0-7.4) Lymphocytes # (Auto) 3.3 K/uL (1.3-3.6) Monocytes # (Auto) 0.6 K/uL (0.3-1.0) Eosinophils # (Auto) 0.1 K/uL (0.0-0.5) Basophils # (Auto) 0.1 K/uL (0.0-0.1) Nucleated RBC Absolute Count (auto) 0.00 K/uL Prothrombin Time 12.9 seconds (12.0-14.4) Prothromb Time International Ratio 0.97 Activated Partial Thromboplast Time 32 seconds (23-35) Glomerular Filtration Rate Calc > 60.0 Calcium Level 9.3 mg/dl (8.4-10.2) Total Bilirubin 0.8 mg/dl (0.2-1.3) Aspartate Amino Transf (AST/SGOT) 34 U/L (0-35) Alanine Aminotransferase (ALT/SGPT) 32 U/L (0-56) Alkaline Phosphatase 100 U/L (0-126) Total Protein 7.3 gm/dl (6.3-8.2) Albumin 3.8 g/dl (3.5-5.0) Triglycerides Level 235 mg/dl (0-250) Cholesterol Level 197 mg/dl (75-200) LDL Cholesterol 117 mg/dl VLDL Cholesterol 47 mg/dl HDL Cholesterol 33 mg/dl Percent HDL Cholesterol 16.0 % Cholesterol Ratio (LDL/HDL) 3.54 Cholesterol/HDL Ratio 6.0 Coagulation Test 11/08/17 16:35 Prothrombin Time 12.9 seconds Prothromb Time International Ratio 0.97 Activated Partial Thromboplast Time 32 seconds EKG/Imaging Imaging EXAMINATION: MRI brain without IV contrast HISTORY: Stroke in left eye, headache. COMPARISON: None. TECHNIQUE: Multi-planar, multi-sequence brain MRI was performed without IV contrast. FINDINGS: The exam is mildly limited by patient motion artifact. Brain volume: Normal. Sagittal midline structures: Normal. Ventricles: Normal. Acute ischemic changes: No diffusion restriction present to suggest acute ischemia. Hemorrhage: No acute hemorrhage or hemosiderin staining. Masses/edema: None. You-white: Negative. White matter: Patchy T2/FLAIR hyperintensities in the deep white matter bilaterally. Vessels: Normal. Extra-axial: None. Calvarium/scalp: Negative. Skull base: Negative. Visualized sinuses/orbits: Negative. Visualized upper neck: Negative. IMPRESSION: 1. No acute infarct, hemorrhage or intracranial mass lesion. 2. Moderate nonspecific white matter disease is suspicious for chronic small vessel ischemia. Report Dictated By: Yvrose Elizabeth MD at 11/08/2017 6:42 PM Report E-Signed By: Yvrose Elizabeth MD at 11/08/2017 6:44 PM ED Course/Re-evaluation ED Course Patient was admitted to an exam room, history and physical were obtained. Differential diagnoses were considered. On examination patient has no focal deficits, extraocular movements intact, cranial nerves II through XII grossly intact. Patient had no pronator drift. An MRI was done of the brain, CBC, CMP, lipid panel were done. Lab results were unremarkable. The MRI of the brain showed no stroke. I discussed the findings with patient. We will go ahead and discharge her home at this time. She is to follow-up with her hand polisher as she was directed. She is to also follow-up with her primary care provider. If she is any worsening of her conditions I would like her to return to the emergency room. She is continue with her normal medications. At this time I'm unsure what caused her symptoms. I would encourage that she follow-up as directed. Patient verbalized understanding and agreement with plan. Decision to Disposition Date: Nov 08, 2017 Decision to Disposition Time: 19:09 Depart Departure Latest Vital Signs Vital Signs Date Time Temp Pulse Resp B/P (MAP) Pulse Ox O2 Delivery O2 Flow Rate FiO2 11/08/17 19:16 85 16 138/85 (102) 95 Room Air 11/08/17 16:30 98.2 Impression: Primary Impression: Visual changes Condition: Improved Disposition: HOME OR SELF-CARE Patient Instructions: Blurred Vision (ED) Additional Instructions: Follow up with Real Estate Representative, call to make an appointment next week. Return to the ER if condition worsens. Continue with your current medications. Get plenty of rest. Follow up with your primary care provider in the next week. Take Tylenol or Ibuprofen as needed for pain. BRITTANIE BALLESTEROSP Nov 08, 2017 16:35
[2017-11-08 16:52] LABS: PLATELET COUNT, AUTOMATED 217 K/uL (150-450)
[2017-11-08 16:57] LABS: INR 0.97
[2017-11-08 16:58] LABS: LDL CHOLESTEROL 117 mg/dl
--- NOTE | 2017-11-08 18:49 | RADIOLOGY IMAGING REPORT ---
FACILITY: [facility] - [place], [place] PATIENT NAME: Aalna Mercer : 1950 MR: [id number] V: [id number] EXAM DATE: ORDERING PHYSICIAN: BRITTANIE BALLESTEROS TECHNOLOGIST: Location: [facility] - [place] Patient: Alana Mercer : 1950 Visit/Account:[id number] Date of Sevice: 11/08/2017 EXAMINATION: MRI brain without IV contrast HISTORY: Stroke in left eye, headache. COMPARISON: None. TECHNIQUE: Multi-planar, multi-sequence brain MRI was performed without IV contrast. FINDINGS: The exam is mildly limited by patient motion artifact. Brain volume: Normal. Sagittal midline structures: Normal. Ventricles: Normal. Acute ischemic changes: No diffusion restriction present to suggest acute ischemia. Hemorrhage: No acute hemorrhage or hemosiderin staining. Masses/edema: None. You-white: Negative. White matter: Patchy T2/FLAIR hyperintensities in the deep white matter bilaterally. Vessels: Normal. Extra-axial: None. Calvarium/scalp: Negative. Skull base: Negative. Visualized sinuses/orbits: Negative. Visualized upper neck: Negative. IMPRESSION: 1. No acute infarct, hemorrhage or intracranial mass lesion. 2. Moderate nonspecific white matter disease is suspicious for chronic small vessel ischemia. Report Dictated By: Yvrose Elizabeth MD at 11/08/2017 6:42 PM Report E-Signed By: Yvrose Elizabeth MD at 11/08/2017 6:44 PM [id number]
[2017-11-08 19:16] VITALS: BP 138/85
== END 2017-11-08 19:17 | disposition home or self-care (01) ==
LOC: ER 16:40
DX: H53.8 Other visual disturbances (principal); I25.10 Atherosclerotic heart disease of native coronary artery without angina pectoris; I25.2 Old myocardial infarction; I48.2 Chronic atrial fibrillation; K21.9 Gastro-esophageal reflux disease without esophagitis
CPT/HCPCS: 70551; 82040; 82247; 82310; 82374; 82435; 82465; 82565; 82947; 83718; 84075; 84132; 84155; 84295; 84450; 84460; 84478; 84520; 85025; 85610; 85730; 99283